=== PATIENT | female | born 1995 | race Caucasian/White ===

== ENCOUNTER 2019-08-22 16:08 | Emergency (ER) | payer SELFPAY ==
[2019-08-22 16:16] VITALS: BP 112/56; PULSE 79; RESP 16; TEMP 37.2; O2SAT 98; BMI 26.9
--- NOTE | 2019-08-22 16:28 | W.ED.EYEPROB ---
HPI - Eye Problem General: Chief complaint: Eye Problems Stated complaint: poss pink eye, aches fever Time Seen by Provider: 08/22/19 16:21 Source: patient Mode of arrival: ambulatory Limitations: no limitations History of Present Illness: HPI Narrative: Patient comes in today with complaints of eye drainage and discomfort. Patient appears mildly unwell. Patient also reports some cough and nasal drainage and a little loose stools. Patient appears in no pain. chief complaint: eye redness Review of Systems General: Reports: 10 or more systems reviewed and unremarkable except in HPI and below Eyes: Reports: eye discharge ENMT: Reports: nasal discharge Resp: Reports: non-productive cough PFSH ED PFSH: Social History Smoking and tobacco status: current every day smoker Female Reproductive History: Date of last menstrual period: 08/15/19 Physical Exam Const: COMMON NORMALS: no apparent distress and oriented x3 GENERAL APPEARANCE: cooperative HENMT: COMMON NORMALS: normocephalic, external ears normal, EAC's normal, TM's normal bilaterally and external nose normal HEAD & SCALP: normal to inspection and normocephalic FACE & SINUS: normal facial exam NOSE: external nose normal GENERAL EAR: hearing not grossly impaired EXTERNAL EAR: Yes external ears normal EXTERNAL AUDITORY CANAL: EAC's normal TYMPANIC MEMBRANE: TM's normal bilaterally MOUTH: oral and palatal mucosa normal THROAT: posterior oropharynx abnormal erythema Eye: COMMON NORMALS: PERRL and EOMs intact bilaterally EYELID: eyelid abnormal right upper eyelid erythema and swelling and right lower eyelid erythema and swelling CONJUNCTIVA: Yes conjunctiva abnormal positive right conjunctival injection PUPIL: Yes PERRL Neck/C-Spine: COMMON NORMALS: full ROM and no lymphadenopathy Lymph: LYMPHATIC: no lymphedema noted Chest: COMMONS NORMALS: inspection of chest normal and palpation of chest normal Resp: COMMON NORMALS: normal respiratory effort and clear to auscultation bilaterally AUSCULTATION: clear to auscultation bilaterally Cardio: COMMON NORMALS: regular rate and regular rhythm RATE: regular rate RHYTHM: regular rhythm GI: COMMON NORMALS: normal to inspection, nondistended, normoactive bowel sounds and non-tender : COMMON NORMALS: Yes no CVA tenderness BLADDER/KIDNEY EXAM: Yes no CVA tenderness Back/Pelvis: COMMON NORMALS: no CVA tenderness and thoracic and lumbar spine normal to inspection Extremity: COMMON NORMALS: normal to inspection GENERAL: No edema Neuro: COMMON NORMALS: oriented x3, moves all extremities and no focal motor deficits Psych: COMMON NORMALS: mental status grossly normal and cooperative Skin: COMMON NORMALS: no rashes or lesions noted GENERAL SKIN EXAM: no rashes or lesions noted Course Vital Signs: Vital signs: Vital Signs Temperature 98.9 F 08/22/19 16:16 Pulse Rate 79 08/22/19 16:16 Respiratory Rate 16 08/22/19 16:16 Blood Pressure 112/56 08/22/19 16:16 Pulse Oximetry 98 08/22/19 16:16 MDM - Eye Problem MDM Narrative: Medical decision making narrative: patient comes in with redness to right eye. Exam notes mild swelling and redness, mild nasal discharge, remainder of exam normal. DDX conjunctivitis, URI, viral syndrome. Influenza test negative, will treat with antibiotic eye drop. Patient reports understanding of care plan. Lab Data: Labs: Lab Results 08/22/19 Range/Units 16:59 Influenza Type A A g Negative (Negative) POC Influenza B Ag Negative (Negative) Discharge Plan Discharge Patient Disposition: Home, Self-Care Clinical Impression: Bacterial conjunctivitis, Viral syndrome Condition: Stable Prescriptions: New TobraDex 0.3-0.1 % drops,suspension 1 drp ophthalmic (eye) QID 5 Days Qty: 2.5 RF: 0 No Action prazosin 5 mg capsule 5 mg PO .HS RF: 0 quetiapine [Seroquel] 25 mg tablet 25 mg PO .HS RF: 0 fluoxetine [Prozac] 40 mg capsule 40 mg PO QDAY RF: 0 Referrals: Jeronimo Mehta MD [Family Provider] - Salvatore Boston FNP [Primary Care Provider] - Patient Instructions: Conjunctivitis (ED) Activity Restrictions/Additional Instructions: Encourage plenty of fluids Acetaminophen and ibuprofen for pain or fever Follow-up for persistent symptom Return to ER for high fever increase redness and swelling to eye Coding Level of Care Code ED Private Branch Exchange Service Adviser for Chg Fwd Exam Comprehensive
[2019-08-22 17:22] LABS: Influenza A by IFA Negative (Negative); Influenza B by IFA Negative (Negative)
[2019-08-22 18:19] VITALS: BP 111/63; PULSE 64; RESP 18; TEMP 36.7; O2SAT 99
== END 2019-08-22 18:20 | disposition home or self-care (01) ==
PROVIDERS: Emergency Provider Nurse Practitioner Family; Family Provider Pediatrics; PCP Nurse Practitioner Family
DX: H10.89 Other conjunctivitis (principal); B34.9 Viral infection, unspecified; F17.200 Nicotine dependence, unspecified, uncomplicated
CPT/HCPCS: 12345; 87804; 99282

== ENCOUNTER 2019-10-05 13:41 | Emergency (ER) | payer SELFPAY ==
[2019-10-05 13:50] VITALS: BP 134/110; PULSE 96; RESP 18; TEMP 36.4; O2SAT 99; BMI 25.5
--- NOTE | 2019-10-05 13:52 | W.ED.FEMALGU ---
HPI - Female Genitourinary General: Chief complaint: Urogenital-Female Stated complaint: female problems Time Seen by Provider: 10/05/19 13:50 Source: patient Mode of arrival: ambulatory Limitations: no limitations History of Present Illness: Date of Last Menstrual Period: 08/15/19 Review of Systems General: Reports: 10 or more systems reviewed and unremarkable except in HPI and below PFSH ED PFSH: Social History Smoking and tobacco status: current every day smoker Female Reproductive History: Date of last menstrual period: 08/15/19 Physical Exam Const: COMMON NORMALS: no apparent distress and oriented x3 GENERAL APPEARANCE: cooperative HENMT: COMMON NORMALS: normocephalic, TM's normal bilaterally and external nose normal HEAD & SCALP: normal to inspection and normocephalic NOSE: external nose normal TYMPANIC MEMBRANE: TM's normal bilaterally MOUTH: oral and palatal mucosa normal THROAT: posterior oropharynx normal Eye: GENERAL EYE: normal appearance of both eyes Neck/C-Spine: COMMON NORMALS: full ROM Lymph: LYMPHATIC: no lymphadenopathy noted Chest: COMMONS NORMALS: inspection of chest normal Resp: COMMON NORMALS: normal respiratory effort EFFORT & INSPECTION: Yes able to speak in complete sentences Cardio: COMMON NORMALS: regular rate and regular rhythm RATE: regular rate RHYTHM: regular rhythm GI: COMMON NORMALS: non-tender : COMMON NORMALS: Yes no CVA tenderness BLADDER/KIDNEY EXAM: Yes no CVA tenderness OTHER: Patient has some ulcerated lesions to the left vulvar area that was noted on visualization. Contracts Administrator, Betsy RN, was present during examination. Back/Pelvis: COMMON NORMALS: no CVA tenderness and thoracic and lumbar spine normal to inspection Extremity: COMMON NORMALS: normal to inspection Neuro: COMMON NORMALS: oriented x3 and moves all extremities Psych: COMMON NORMALS: mental status grossly normal and cooperative Skin: COMMON NORMALS: no rashes or lesions noted GENERAL SKIN EXAM: no rashes or lesions noted Course Vital Signs: Vital signs: Vital Signs Temperature 97.6 F 10/05/19 13:50 Pulse Rate 96 10/05/19 13:50 Respiratory Rate 18 10/05/19 13:50 Blood Pressure 134/110 10/05/19 13:50 Pulse Oximetry 99 10/05/19 13:50 MDM - Female MDM Narrative: Medical decision making narrative: Patient comes in today for concerns of herpes lesions to the genital area. Patient reports that she had used unprotected sex and then had an outbreak of lesions. Patient is also had a couple lesions to the face and to the lower extremity. Patient does shave her perineal area routinely. Exam notes some ulcerative lesions to the left vulvar area. Lesions are linear pattern. Patient also has a crusting honey crusting lesion to the left face and the right ankle. Differential diagnosis includes genital herpes, folliculitis, impetigo. Suspect patient may have genital herpes but I think that she has impetigo or folliculitis along with it. We will treat with valacyclovir and Bactrim for the next 7 to 10 days. Patient reports understanding of care plan reviewed care instructions and need for follow-up. Discharge Plan Discharge Patient Disposition: Home, Self-Care Clinical Impression: Acute folliculitis Genital herpes Qualifiers: Herpes simplex infection site: vulvovaginitis Qualified Code(s): A60.04 - Herpesviral vulvovaginitis Condition: Stable Prescriptions: New Bactrim DS 800-160 mg tablet 1 tab PO BID 10 Days Qty: 20 RF: 0 valacyclovir 1 gram tablet 1,000 mg PO TID 7 Days Qty: 21 RF: 0 No Action fluoxetine [Prozac] 40 mg capsule 40 mg PO DAILY RF: 0 Tylenol 325 mg Tablet 325 mg PO QID PRN (Reason: DISCOMFORT) RF: 0 Discharge Orders: Discharge Order (Routine); Ordered 10/05/19 Ordered By: Narayan Qureshi Referrals: Jeronimo Mehta MD [Family Provider] - Discharge Diet: Usual diet Discharge Activity: Increase activity as tolerated Patient Instructions: Folliculitis (ED) Activity Restrictions/Additional Instructions: Medications as directed. Avoid picking at lesions. Good handwashing. Return to the ER for high fever or worsening symptoms. Follow-up with primary care in 1 week for recheck. Coding Level of Care Code ED Satellite Communications Operator for Giovanna Fwwill Exam Comprehensive
[2019-10-05 14:34] VITALS: BP 117/86; PULSE 85; RESP 18; O2SAT 100
== END 2019-10-05 17:58 | disposition home or self-care (01) ==
PROVIDERS: Emergency Provider Nurse Practitioner Family; Family Provider Pediatrics
DX: A60.04 Herpesviral vulvovaginitis (principal); L73.9 Follicular disorder, unspecified; F17.210 Nicotine dependence, cigarettes, uncomplicated
CPT/HCPCS: 12345; 99281; 99282

== ENCOUNTER 2019-10-19 22:01 | Emergency (ER) | payer SELFPAY ==
[2019-10-19 22:03] VITALS: BP 126/90; PULSE 87; RESP 18; TEMP 36.6; O2SAT 100; BMI 26.4
--- NOTE | 2019-10-19 23:00 | W.ED.FEMALGU ---
HPI - Female Genitourinary General: Chief complaint: General Medical Stated complaint: rash Time Seen by Provider: 10/19/19 22:48 Source: patient Mode of arrival: ambulatory Limitations: no limitations History of Present Illness: HPI Narrative: Patient is a 24-year-old female who presents to ED today wanting tested for STDs. Patient apparently was seen here approximately 2 weeks ago and diagnosed with genital herpes. She states that she has had another encounter with that same partner who recently informed her that he may have an STD however will not divulge which one. When asked patient tells me she is having vaginal itching and discharge. She denies pelvic pain or painful intercourse. Denies abdominal pain, nausea, vomiting. No fevers. MD elicited complaint: vaginal discharge and genital itching Onset (ago): day(s) Location of symptoms: vaginal Female Urogenital Radiation: Non-Radiating Vaginal discharge: white Vaginal bleeding: none Exacerbating factors: none Relieving factors: none Associated symptoms: Reports no associated symptoms and vaginal discharge; Deny abdominal pain, nausea or vaginal bleeding Treatment prior to arrival: none Sexual activity: Yes and New Sexual Partners Patient : No Date of Last Menstrual Period: 08/15/19 Review of Systems Const: Denies: fever or chills GI: Denies: abdominal pain, nausea, vomiting or diarrhea : Reports: genital lesion (these cleared after being placed on Valtrex), genital itching and vaginal discharge; Denies: flank pain, difficulty urinating, painful urination, urinary frequency, urinary urgency, urinary hesitancy, blood in urine, vaginal odor, vaginal bleeding or pelvic pain Skin/Breast: Reports: rash PFSH ED PFSH: Social History Smoking and tobacco status: current every day smoker Female Reproductive History: Date of last menstrual period: 08/15/19 Physical Exam Const: COMMON NORMALS: no apparent distress, average body habitus, oriented x3, no limitations, healthy appearing, alert and well nourished GI: COMMON NORMALS: normal to inspection, nondistended, normoactive bowel sounds, soft to palpation, non-tender, no hepatosplenomegaly and no masses PALPATION: Yes soft and Yes no hepatosplenomegaly : COMMON NORMALS: Yes no CVA tenderness, Yes external appearance normal and Yes bimanual exam normal BLADDER/KIDNEY EXAM: Yes no CVA tenderness EXTERNAL FEMALE EXAM: Yes normal appearance of the urethra SPECULUM EXAM - VAGINA: No vaginal bleeding and No tissue present in vagina SPECULUM EXAM - CERVIX: No cervical bleeding, Yes abnormal cervical discharge yellow and white and No cervical tenderness BIMANUAL EXAM - VAGINA & UTERUS: Yes normal bimanual exam and No cervical tenderness OB/EXTERNAL & SPECULUM: no tissue noted in vagina and vaginal bleeding Back/Pelvis: COMMON NORMALS: no CVA tenderness Neuro: COMMON NORMALS: oriented x3 SENSORIUM/ORIENTATION: Yes alert Skin: COMMON NORMALS: no rashes or lesions noted GENERAL SKIN EXAM: no rashes or lesions noted Course Vital Signs: Vital signs: Vital Signs Temperature 97.9 F 10/19/19 22:03 Pulse Rate 87 10/19/19 22:03 Respiratory Rate 18 10/19/19 22:03 Blood Pressure 126/90 10/19/19 22:03 Pulse Oximetry 100 10/19/19 22:03 MDM - Female Lab Data: Labs: Lab Results 10/19/19 10/19/19 Range/Units 23:30 23:30 Urine Color Yellow (Yellow) Urine Appearance Clear (CLEAR) Urine pH 8 H (5-7) Ur Specific Gravit y 1.015 (1.005-1.030) Urine Protein Neg (Negative) Urine Glucose (UA) Norm (Normal) Urine Ketones Negative (Negative) Urine Blood Trace H (Negative) Urine Nitrate Negative (Negative) Urine Bilirubin Neg (NEGATIVE) Prot Sulfosalicyli c Acd Negative (Negative) Urine Urobilinogen Norm (Negative) mg/dL Ur Leukocyte Paula ase Negative (Negative) Urine RBC Rare (0-2) /hpf Urine WBC Rare (0-5) /hpf Ur Squamous Epith Cells 0-4 H (0-5) Urine Bacteria Trace (NONE) Urine HCG, Qual Negative (Negative) Discharge Plan Discharge Patient Disposition: Home, Self-Care Clinical Impression: Possible exposure to STD, Vaginitis due to Trichomonas Condition: Stable Prescriptions: New metronidazole 500 mg tablet 500 mg PO BID 7 Days Qty: 14 RF: 0 Discharge Orders: Discharge Order (Routine); Ordered 10/20/19 Ordered By: Sandie Pereira Referrals: Jeronimo Mehta MD [Family Provider] - Patient Instructions: Sexually Transmitted Diseases (ED), Safe Sex (ED), Trichomoniasis (ED) Activity Restrictions/Additional Instructions: We have tested you today for gonorrhea and chlamydia. These are send out tests and we will not get results for 2 to 3 days. If they are positive then the labs should contact you. If you have not heard from them please contact medical records to obtain your results. Abstain from all sexual activity until you get these results. You have tested positive for trichomonas today. I am placing you on antibiotics to treat this infection. Again no sexual activity until you complete the full course of antibiotics. You need to notify any sexual partners you have had so they may also get tested and treated. Coding Level of Care Code ED Irrigation System Operator for Giovanna Fwwill Exam Expanded Problem Focused
[2019-10-20 00:12] LABS: Add Urine Microscopic? YES; Bacteria Urine TRACE; Bilirubin Urine Neg (NEGATIVE); Blood Urine Trace (Negative); Glucose Urine UA Norm (Normal); Ketones Urine Negative (Negative); Leukocyte Esterase Urine Negative (Negative); Nitrate Urine Negative (Negative); Protein Urine Neg (Negative); RBC Urine RARE /hpf (0-2); Specific Gravity, Urine 1.015 (1.005-1.030); Squamous Epithelial Cell Urine 0-4 (0-5); Sulfosalicylic Acid Urine Negative (Negative); Urine Appearance Clear (CLEAR); Urine Color Yellow (Yellow); Urobilinogen Urine Norm (Negative); WBC Urine RARE /hpf (0-5); pH Urine 8 (5-7)
[2019-10-20] MEDS: cefTRIAXone 1,000 mg SDV 250 MG IM (00:16)
[2019-10-20] MEDS: azithromycin 250 mg Tablet 1000 MG PO (00:16)
[2019-10-20 00:36] VITALS: BP 124/72; PULSE 76; RESP 16; O2SAT 99
== END 2019-10-20 00:41 | disposition home or self-care (01) ==
PROVIDERS: Emergency Provider Physician Assistant; Family Provider Pediatrics
DX: A59.01 Trichomonal vulvovaginitis (principal); F17.210 Nicotine dependence, cigarettes, uncomplicated
CPT/HCPCS: 12345; 81001; 81025; 87210; 87491; 87591; 96372; 99281; 99283; E0352; J0696; Q0144

== ENCOUNTER 2020-01-01 23:22 | Emergency (ER) | payer SELFPAY ==
--- NOTE | 2020-01-01 23:25 | XRR_ITS ---
PROCEDURE INFORMATION: Exam: XR Chest, 1 View Exam date and time: 01/01/2020 11:27 PM Age: 24 years old Clinical indication: Cough; Additional info: AMS TECHNIQUE: Imaging protocol: XR of the chest Views: 1 view. COMPARISON: CR Chest 2 views* [id number] 04/01/2016 12:05 PM FINDINGS: Lungs: Lungs are clear. Pleural space: There is no pleural effusion or pneumothorax. Heart/Mediastinum: Cardiomediastinal contours are unremarkable. Bones/joints: Bones are unremarkable. XR/XR chest 1V portable [id number] IMPRESSION: No pathologic findings.
[2020-01-01 23:29] VITALS: BP 150/119; PULSE 84; RESP 17; TEMP 36.6; O2SAT 97; BMI 23.4
--- NOTE | 2020-01-01 23:33 | ED_ITS ---
HPI - Dizziness General: Chief Complaint: General Medical Stated Complaint: POSSIBLE DRUG USE Time Seen by Provider: 01/01/20 23:31 Source: patient Mode of arrival: ambulatory Limitations: no limitations History of Present Illness: HPI Narrative: Patient was brought in by EMS due to concerns of substance abuse. Patient states that she used methamphetamines tonight and became disoriented. Patient does not know if she has an infection or other illness. Patient appears sedated. Patient states that there was someone else's blood mixed with the methamphetamines that she took. Patient denies using anything but methamphetamine. Patient appears well. Patient responds to questions. Associated neuro symptoms: Reports confusion Review of Systems General: Reports: 10 or more systems reviewed and unremarkable except in HPI and below Neuro: Reports: confusion PFSH ED PFSH: Medical History (Updated 01/02/20 @ 01:03 by ROMAIN Baptiste) Anxiety and depression Herpes Intermittent explosive disorder Menorrhagia with irregular cycle PTSD (post-traumatic stress disorder) Surgical History (Updated 10/21/19 @ 13:42 by Brittney Munoz APN, FABRICIO) H/O section 1--04/18/2012 2--11/09/2015 H/O tubal ligation (~11/09/15) H/O wisdom tooth extraction (~2005) Family History (Updated 10/21/19 @ 13:44 by Brittney Munoz APN, FABRICIO) Grandmother Diabetes Paternal grandmother Grandfather Diabetes Paternal grandfather Stroke Paternal grandfather Family/Other Cancer female cancer-- Paternal aunt and cousin Denies family history of Colon cancer Ovarian cancer Breast cancer Uterine cancer Social History Smoking and tobacco status: current every day smoker cigarettes Packs smoked per day: 1 Alcohol intake: current Additional social history: Drug use: -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 She said she stopped using drugs at that point and has not used any drugs since then. -Denies past use of any other drugs. Female Reproductive History: Date of last menstrual period: 08/15/19 Physical Exam Const: COMMON NORMALS: no acute distress and patient oriented x3 GENERAL APPEARANCE: cooperative HENMT: COMMON NORMALS: normocephalic, TM's normal bilaterally and Normal external nose present HEAD & SCALP: normal to inspection and normocephalic NOSE: Normal external nose present TYMPANIC MEMBRANE: TM's normal bilaterally MOUTH: Normal oral and palatal mucosa present THROAT: posterior oropharynx normal Eye: GENERAL EYE: appearance normal, both eyes and all related structures Neck/C-Spine: COMMON NORMALS: full ROM Lymph: LYMPHATIC: no lymphadenopathy noted Chest: COMMONS NORMALS: normal inspection of the chest Resp: COMMON NORMALS: normal respiratory effort EFFORT & INSPECTION: Yes able to speak in complete sentences Cardio: COMMON NORMALS: regular rate and regular rhythm RATE: regular rate RHYTHM: regular rhythm GI: COMMON NORMALS: non-tender : COMMON NORMALS: Yes no CVA tenderness BLADDER/KIDNEY EXAM: Yes no CVA tenderness Back/Pelvis: COMMON NORMALS: no CVA tenderness and thoracic and lumbar spine normal to inspection Extremity: COMMON NORMALS: normal to inspection Neuro: COMMON NORMALS: patient oriented x3 and moves all extremities Psych: COMMON NORMALS: mental status grossly normal and cooperative Skin: COMMON NORMALS: no rashes or lesions noted GENERAL SKIN EXAM: no rashes or lesions noted Course ED course: 1:00. Patient appears well. Patient is alert and oriented. Patient is up ambulatory without difficulty. Patient denies any pain or discomfort. Patient refused any IV fluids. Vital signs are normal and laboratory values were normal. Vital Signs: Vital signs: Vital Signs Temperature 98 F 01/01/20 23:29 Pulse Rate 84 01/01/20 23:29 Respiratory Rate 17 01/01/20 23:29 Blood Pressure 150/119 01/01/20 23:29 Pulse Oximetry 97 01/01/20 23:29 MDM - Dizziness MDM Narrative: Medical decision making narrative: Patient was brought in by EMS for concerns of substance abuse. Patient was alert and oriented when she arrived to the ER but seems sedated. Patient was here for approximately 2 hours and seemed to become more alert within 30 minutes of being here. Laboratory values come back with a CBC and CMP being normal. Patient was alert and oriented and able to walk without difficulty prior to discharge. Patient was released to home with a significant other. Lab Data: Labs: Lab Results 01/02/20 01/02/20 01/02/20 Range/Units 00:10 00:10 00:10 WBC 9.4 (4.0-10.0) 10^3/ uL RBC 4.21 (4.1-5.3) 10^6/u L Hgb 12.2 (11.5-15.3) g/dL Hct 38.9 (37.0-47.0) % MCV 92.4 (81-99) fL MCH 29.0 (28.0-34.0) pg MCHC 31.4 (30.0-36.0) g/dL RDW 14.1 (12.1-15.1) % Plt Count 329 (130-400) 10^3/c mm MPV 9.3 (7.4-10.4) fL Neut % (Auto) 67.5 % Lymph % (Auto) 20.2 % Carter % (Auto) 8.4 % Eos % (Auto) 2.6 % Baso % (Auto) 1.0 % Neut # (Auto) 6.32 (1.8-7.7) 10^3/u L Lymph # (Auto) 1.9 (0.8-4.8) 10^3/u L Carter # (Auto) 0.8 (0.2-0.9) 10^3/u L Eos # (Auto) 0.2 (0.0-0.8) 10^3/u L Baso # (Auto) 0.1 (0.0-0.1) 10^3/u L Nucleated RBC % (a uto) 0 % Nucleated RBCs # 0.0 /100WBC Sodium 141 (136-145) mmol/L Potassium 3.6 (3.5-5.1) mmol/L Chloride 103 (98-107) mmol/L Carbon Dioxide 27 (22-29) mmol/L Anion Gap 14.6 (5-19) BUN 6 (6-20) mg/dL Creatinine 0.6 (0.5-0.9) mg/dL GFR Calculation 121.8 (90-130) mL/min Glucose 112 (65-115) mg/dL Calculated Osmolal ity 289 (285-295) mOsm/k g Calcium 8.9 (8.5-10.5) mg/dL Total Bilirubin 0.2 (0.15-1.2) mg/dL AST 12 (0-32) U/L ALT 13 (0-33) U/L Alkaline Phosphata se 51 (35-105) IU/L Total Protein 7.9 (6.6-8.7) g/dL Albumin 4.5 (3.5-5.2) g/dL Globulin 3.4 (1.3-4.6) g/dL HCG, Qual Negative (Negative) Salicylates < 0.3 L (3-10) mg/dL Acetaminophen < 5.0 L (10-30) ug/mL Ethyl Alcohol < 10 (0-10) mg/dL Discharge Plan Discharge Patient Disposition: Home, Self-Care Clinical Impression: Substance abuse, Methamphetamine use disorder, severe Condition: Stable Prescriptions: No Action fluoxetine 20 mg tablet 20 mg PO DAILY Qty: 30 RF: 2 prazosin 5 mg capsule 5 mg PO .HS Qty: 30 RF: 2 Discharge Orders: Discharge Order (Routine); Ordered 01/02/20 Ordered By: Narayan Qureshi Discharge Diet: Usual diet Discharge Activity: Increase activity as tolerated Patient Instructions: Methamphetamine Abuse (ED) Activity Restrictions/Additional Instructions: Home and rest. Drink plenty of fluids. Avoid the use of IV drugs. Follow-up with primary care. Return to the emergency department for new concerns. Coding Level of Care Code ED Senior Formulation Scientist for Giovanna Fwd Exam Comprehensive
[2020-01-02 00:18] LABS: Basophils # 0.1 10^3/uL (0.0-0.1); Eosinophils # 0.2 10^3/uL (0.0-0.8); Eosinophils % 2.6 %; Hematocrit 38.9 % (37.0-47.0); Hemoglobin 12.2 g/dL (11.5-15.3); Lymphocytes # 1.9 10^3/uL (0.8-4.8); Lymphocytes % 20.2 %; Mean Corpuscular HGB Conc 31.4 g/dL (30.0-36.0); Mean Corpuscular Volume 92.4 fL (81-99); Mean Platelet Volume 9.3 fL (7.4-10.4); Monocytes # 0.8 10^3/uL (0.2-0.9); Monocytes % 8.4 %; Neutrophils # 6.32 10^3/uL (1.8-7.7); Neutrophils % 67.5 %; Nucleated Red Blood Cells % 0 %; Platelet Count 329 10^3/cmm (130-400); Red Blood Count 4.21 10^6/uL (4.1-5.3); Red Cell Distribution Width 14.1 % (12.1-15.1); White Blood Count 9.4 10^3/uL (4.0-10.0)
[2020-01-02 00:25] LABS: HCG, Serum Qual Negative (Negative)
[2020-01-02 00:34] LABS: Alanine Aminotransferase 13 U/L (0-33); Albumin Level 4.5 g/dL (3.5-5.2); Alkaline Phosphatase 51 IU/L (35-105); Anion Gap 14.6 (5-19); Aspartate Amino Transferase 12 U/L (0-32); Blood Urea Nitrogen 6 mg/dL (6-20); Calcium 8.9 mg/dL (8.5-10.5); Carbon Dioxide 27 mmol/L (22-29); Chloride 103 mmol/L (98-107); Globulin 3.4 g/dL (1.3-4.6); Glomerular Filtration Rate 121.8 mL/min (90-130); Glucose 112 mg/dL (65-115); Osmolality Calculated 289 mOsm/kg (285-295); Potassium 3.6 mmol/L (3.5-5.1); Sodium 141 mmol/L (136-145); Total Bilirubin 0.2 mg/dL (0.15-1.2); Total Protein 7.9 g/dL (6.6-8.7)
[2020-01-02 00:49] LABS: Acetaminophen < 5.0 ug/mL (10-30); Alcohol Level < 10 mg/dL (0-10); Salicylate < 0.3 mg/dL (3-10)
--- NOTE | 2020-01-02 02:14 | PC.NURSE ---
pt attempted to remove IV prior to d/c. IV removed IV by staff
--- NOTE | 2020-01-02 02:22 | PC.NURSE ---
i have reviewed the assessment and agree
[2020-01-02 02:39] LABS: Amphetamines Screen Urine Positive (Negative); Barbiturates Screen Urine Negative (Negative); Benzodiazepines Screen Urine Negative (Negative); Cocaine Screen Urine Negative (Negative); Opiate Screen Urine Negative (Negative); PCP Screen Urine Negative (Negative); THC Screen Urine Negative (Negative)
[2020-01-02 02:56] LABS: Add Urine Microscopic? YES; Bilirubin Urine Neg (NEGATIVE); Blood Urine Neg (Negative); Glucose Urine UA Norm (Normal); Ketones Urine Negative (Negative); Leukocyte Esterase Urine Trace (Negative); Nitrate Urine Negative (Negative); Protein Urine Neg (Negative); Specific Gravity, Urine 1.005 (1.005-1.030); Urine Appearance Clear (CLEAR); Urine Color Straw (Yellow); Urobilinogen Urine Norm (Negative); pH Urine 6.5 (5-7)
[2020-01-02 03:00] LABS: Bacteria Urine TRACE; RBC Urine RARE /hpf (0-2); Transitional Epi Cells Urine 0-4 /hpf; WBC Urine 0-4 /hpf (0-5)
[2020-01-02 03:01] LABS: Add Urine Culture? No
== END 2020-01-02 02:00 | disposition home or self-care (01) ==
PROVIDERS: Emergency Medicine; Emergency Provider Nurse Practitioner Family
DX: F15.10 Other stimulant abuse, uncomplicated (principal); F17.210 Nicotine dependence, cigarettes, uncomplicated
CPT/HCPCS: 12345; 71045; 80053; 80306; 80307; 81001; 81003; 84703; 85025; 99283

== ENCOUNTER 2021-06-04 07:46 | Outpatient (CLI) | payer MEDICAID, SELFPAY ==
--- NOTE | 2021-06-04 08:00 | MR_ITS ---
WS: [id number] MRI NECK WITH CONTRAST TECHNIQUE: Noncontrast axial T1, axial T2 FSE fat sat, coronal T2 fat sat, coronal T1, coronal T1 fat sat, sagittal T2 fat sat, plus contrast enhanced coronal, sagittal, and axial T1 fat sat images obta ined. CLINICAL INFORMATION: POSSIBLE PSUEDO TUMOR COMPARISON: CT 2019 FINDINGS: No evidence of restricted diffusion to suggest acute ischemia. Ventricular system and basal cisterns are patent. Normal avalos-white differentiation. No suspicious intracranial signal abnormalities. Saira l posterior fossa. Normal optic chiasm and pituitary infundibulum. Temporal lobes and hippocampal formations are normal in appearance. No hemosiderin on susceptibly weighted images. Optic nerves appear normal. No abnormal gadolinium enhancement. Proximal 7th and 8th cranial nerves appear normal. MR/MR orbit face neck wo/w* [id number] IMPRESSION: 1. No evidence of restricted diffusion to suggest acute ischemia. 2. No suspicious intracranial signal abnormalities. 3. Normal optic chiasm and pituitary infundibulum. Optic nerves appear normal. No optic nerve edema. 4. No abnormal gadolinium enhancement. 5. No hemosiderin on the susceptibility weighted imaging. 6. No other suspicious findings.
[2021-06-04] MEDS: gadobenate dimeglumine 20 mL vial IV (08:48)
== END 2021-06-04 07:47 | disposition home or self-care (01) ==
PROVIDERS: Visit Provider Ophthalmology
DX: H47.10 Unspecified papilledema (principal)
CPT/HCPCS: 70543; A9577

== ENCOUNTER 2021-06-22 15:48 | Emergency (ER) | payer MEDICAID, SELFPAY ==
[2021-06-22 15:51] VITALS: BP 128/91; PULSE 78; RESP 16; TEMP 36.7; O2SAT 98; BMI 27.3
--- NOTE | 2021-06-22 16:11 | XRR_ITS ---
PROCEDURE INFORMATION: Exam: XR Chest Exam date and time: 06/22/2021 4:11 PM Age: 26 years old Clinical indication: Pain; Angina pectoris; Additional info: Chest pain, tingling in fingers and face TECHNIQUE: Imaging protocol: XR of the chest. Views: 1 view. COMPARISON: CR XR chest 1V portable [id number] 01/02/2020 12:03 AM FINDINGS: Lungs: Unremarkable. No consolidation. Pleural spaces: Unremarkable. No pleural effusion. No pneumothorax. Heart/Mediastinum: Unremarkable. No cardiomegaly. Bones/joints: Unremarkable. XR/XR chest 1V portable [id number] IMPRESSION: No acute findings.
--- NOTE | 2021-06-22 16:11 | ECG_ITS ---
[facility] Test Date: 2021-06-22 Pat Name: Jovana Horn Department: Room: Gender: Female Cotton Weigher Operator: : 1995 Requested By: Martin Antonio Order Number: [id number] Quintana MD: Ginny Marquez M.D. Measurements Intervals [place] Rate: 84 P: 48 AK: 162 QRS: 86 QRSD: 85 T: 37 QT: 342 QTc: 406 Interpretive Statements SINUS RHYTHM Compared to ECG 01/26/2018 16:23:58 Sinus tachycardia no longer present Electronically Signed On 06-24-2021 8:36:34 INDUSTRIAL TRUCK OPERATOR by Ginny Marquez M.D. [id number]
--- NOTE | 2021-06-22 16:48 | W.ED.CHESTPA ---
HPI - Chest Pain General: Chief Complaint: Chest Pain Stated Complaint: Tightness in chest, tingling in fingers and hands Time Seen by Provider: 06/22/21 16:48 History of Present Illness: HPI narrative: 26-year-old female [facility] emergency room with complaints of chest tightness numbness and tingling in her fingers and hands. She correlates it to having started taking a medication she got from the [employer] for increased intraocular pressure, acetazolamide. MD complaint: chest pain Onset (ago): hour(s) Timing of current episode: episodic Onset: during rest Pain location: substernal Pain radiation: none Severity: mild Quality: tightness Relieving factors: nothing Exacerbating factors: inspiration Context: new medications Associated symptoms: Deny abdominal pain, diaphoresis, dyspnea, fever(s), leg edema, nausea, palpitations, sense of impending doom, syncope or vomiting Treatment prior to arrival: none Review of Systems Const: Denies: fever(s) or diaphoresis ENMT: Denies: throat pain, ear or mastoid pain, nasal discharge or nasal congestion Card: Denies: palpitations or syncope Resp: Denies: dyspnea GI: Denies: abdominal pain, nausea or vomiting : Denies: flank pain, difficulty voiding, dysuria, urinary frequency or urinary urgency Skin/Breast: Denies: rash or pruritus PFSH ED PFSH: Medical History Anxiety and depression Herpes Intermittent explosive disorder Menorrhagia with irregular cycle Psychiatric care PTSD (post-traumatic stress disorder) Surgical History H/O section 1--04/18/2012 2--11/09/2015 H/O tubal ligation (~11/09/15) H/O wisdom tooth extraction (~2005) Family History Grandmother Diabetes Paternal grandmother Grandfather Diabetes Paternal grandfather Stroke Paternal grandfather Family/Other Cancer female cancer-- Paternal aunt and cousin Denies family history of Colon cancer Ovarian cancer Breast cancer Uterine cancer Social History Smoking and tobacco status: current every day smoker cigarettes Packs smoked per day: 1 Alcohol intake: current Additional social history: Drug use: -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 She said she stopped using drugs at that point and has not used any drugs since then. -Denies past use of any other drugs. Female Reproductive History: Date of last menstrual period: 08/15/19 Physical Exam Const: COMMON NORMALS: no acute distress GENERAL APPEARANCE: cooperative and comfortable ORIENTATION/CONSCIOUSNESS: Yes awake, Yes oriented to person, Yes oriented to place and Yes oriented to time HENMT: COMMON NORMALS: normocephalic, atraumatic and hearing grossly normal bilaterally HEAD & SCALP: normocephalic and atraumatic Neck/C-Spine: COMMON NORMALS: no JVD Resp: COMMON NORMALS: normal respiratory effort, No retractions, No use of accessory muscles and clear to auscultation bilaterally AUSCULTATION: clear to auscultation bilaterally Cardio: COMMON NORMALS: no JVD, regular rate, regular rhythm and No murmurs present (Cardio) RATE: regular rate RHYTHM: regular rhythm GI: COMMON NORMALS: Soft to palpation and No hepatosplenomegaly present AUSCULTATION: Yes normoactive bowel sounds PALPATION: Yes Soft to palpation, No Tenderness to palpation present (GI), No Guarding due to palpation present (GI) and Yes No hepatosplenomegaly present Extremity: COMMON NORMALS: normal to inspection, capillary refill normal, no clubbing, cyanosis or edema, no calf tenderness and no pedal edema Neuro: SENSORIUM/ORIENTATION: Yes oriented to person, Yes oriented to place and Yes oriented to time Skin: COMMON NORMALS: no rashes or lesions noted GENERAL SKIN EXAM: no rashes or lesions noted Course Vital Signs: Vital signs: Vital Signs Temperature 98.1 F 06/22/21 15:51 Pulse Rate 83 06/22/21 17:47 Respiratory Rate 19 H 06/22/21 17:47 Blood Pressure 101/63 06/22/21 16:55 Pulse Oximetry 100 06/22/21 17:47 MDM - Chest Pain MDM Narrative: Medical decision making narrative: Stop acetazolamide. Follow-up with primary care or ophthalmology within the week. I think her symptoms are due to side effects of medication. Lab Data: Labs: Lab Results 06/22/21 06/22/2122 16:51 16:51 16:51 WBC 6.5 10^3/uL 10^3/ uL (4.0-10.0) RBC 4.74 10^6/uL 10^6 /uL (4.1-5.3) Hgb 14.1 g/dL g/dL (11.5-15.3) Hct 44.0 % % (37.0-47.0) MCV 92.8 fl fl (81-99) MCH 29.7 pg pg (28.0-34.0) MCHC 32.0 g/dL g/dL (30.0-36.0) RDW 13.2 % % (12.1-15.1) Plt Count 295 10^3/cmm 10^3 /cmm (130-400) MPV 10.0 fL fL (7.4-10.4) Neut % (Auto) 56.1 % % Lymph % (Auto) 29.6 % % [place] % (Auto) 11.1 % % Eos % (Auto) 2.0 % % Baso % (Auto) 0.9 % % Neut # (Auto) 3.62 10^3/uL 10^3 /uL (1.8-7.7) Lymph # (Auto) 1.9 10^3/uL 10^3/ uL (0.8-4.8) [place] # (Auto) 0.7 10^3/uL 10^3/ uL (0.2-0.9) Eos # (Auto) 0.1 10^3/uL 10^3/ uL (0.0-0.8) Baso # (Auto) 0.1 10^3/uL 10^3/ uL (0.0-0.1) Nucleated RBC % (a uto) 0 % % Nucleated RBCs # 0.0 /100WBC /100W BC Sodium 138 mmol/L mmol/L (136-145) Potassium 4.2 mmol/L mmol/L (3.5-5.1) Chloride 107 mmol/L mmol/L (98-107) Carbon Dioxide 17 mmol/L L mmol/ L (22-29) Anion Gap 18.2 (5-19) BUN 9 mg/dL mg/dL (6-20) Creatinine 0.6 mg/dL mg/dL (0.5-0.9) GFR Calculation 119.9 mL/min mL/m in (90-130) Glucose 73 mg/dL mg/dL (65-115) Calculated Osmolal ity 283 mOsm/kg L mOs m/kg (285-295) Calcium 9.6 mg/dL mg/dL (8.5-10.5) Total Bilirubin 0.2 mg/dL mg/dL (0.15-1.2) AST 12 U/L U/L (0-32) ALT 7 U/L U/L (0-33) Alkaline Phosphata se 58 IU/L IU/L (35-105) Troponin T Gen 5 n g/L 6 ng/L ng/L (0-10) Total Protein 8.0 g/dL g/dL (6.6-8.7) Albumin 4.9 g/dL g/dL (3.5-5.2) Globulin 3.1 g/dL g/dL (1.3-4.6) Discharge Plan Discharge Patient Disposition: Home Clinical Impression: Medication adverse effect Condition: Stable Prescriptions: No Action acetazolamide 500 mg capsule, extended release 500 mg PO BID RF: 0 Tylenol Ex Str Rapid Release 500 mg Tablet 500 mg PO Q6H RF: 0 ibuprofen 200 mg Tablet 600 mg PO Q6H RF: 0 Discharge Orders: Discharge ED (Routine); Ordered 06/22/21 Ordered By: Barry Zavala Discharge Diet: Usual diet Discharge Activity: Resume usual activity Patient Instructions: Opioid Safety Activity Restrictions/Additional Instructions: Stop the acetazolamide Coding Level of Care Code ED Healthcare Architect for Giovanna Fwd Exam Comprehensive
[2021-06-22 16:55] VITALS: BP 101/63; PULSE 76; RESP 18; O2SAT 99
[2021-06-22 17:47] VITALS: PULSE 83; RESP 19; O2SAT 100
[2021-06-22 17:54] LABS: Basophils # 0.1 10^3/uL (0.0-0.1); Basophils % 0.9 %; Eosinophils # 0.1 10^3/uL (0.0-0.8); Hemoglobin 14.1 g/dL (11.5-15.3); Lymphocytes # 1.9 10^3/uL (0.8-4.8); Lymphocytes % 29.6 %; Mean Corpuscular Hemoglobin 29.7 pg (28.0-34.0); Mean Corpuscular Volume 92.8 fl (81-99); Monocytes # 0.7 10^3/uL (0.2-0.9); Monocytes % 11.1 %; Neutrophils # 3.62 10^3/uL (1.8-7.7); Neutrophils % 56.1 %; Nucleated Red Blood Cells % 0 %; Platelet Count 295 10^3/cmm (130-400); Red Blood Count 4.74 10^6/uL (4.1-5.3); Red Cell Distribution Width 13.2 % (12.1-15.1); White Blood Count 6.5 10^3/uL (4.0-10.0)
[2021-06-22 18:06] LABS: Troponin T (5th) Once 6 ng/L (0-10)
[2021-06-22 18:07] LABS: Alanine Aminotransferase 7 U/L (0-33); Albumin Level 4.9 g/dL (3.5-5.2); Alkaline Phosphatase 58 IU/L (35-105); Anion Gap 18.2 (5-19); Aspartate Amino Transferase 12 U/L (0-32); Blood Urea Nitrogen 9 mg/dL (6-20); Calcium 9.6 mg/dL (8.5-10.5); Carbon Dioxide 17 mmol/L (22-29); Chloride 107 mmol/L (98-107); Globulin 3.1 g/dL (1.3-4.6); Glomerular Filtration Rate 119.9 mL/min (90-130); Glucose 73 mg/dL (65-115); Osmolality Calculated 283 mOsm/kg (285-295); Potassium 4.2 mmol/L (3.5-5.1); Sodium 138 mmol/L (136-145); Total Bilirubin 0.2 mg/dL (0.15-1.2)
== END 2021-06-22 18:26 | disposition home or self-care (01) ==
PROVIDERS: Emergency Provider Family Medicine
DX: T88.7XXA Unspecified adverse effect of drug or medicament, initial encounter (principal); T50.905A Adverse effect of unspecified drugs, medicaments and biological substances, initial encounter; F17.210 Nicotine dependence, cigarettes, uncomplicated
CPT/HCPCS: 71045; 80053; 84484; 85025; 93005; 99283

== ENCOUNTER → 2021-08-23 13:45 | Outpatient (BNVA) | payer MEDICAID, SELFPAY | PROVIDERS: Visit Provider Social Worker | DX: F43.12 Post-traumatic stress disorder, chronic (principal); F33.1 Major depressive disorder, recurrent, moderate | CPT/HCPCS: 90834 ==

== ENCOUNTER → 2021-09-06 07:53 | Outpatient (BNVA) | payer OTHER, SELFPAY | PROVIDERS: Visit Provider Social Worker | DX: F33.1 Major depressive disorder, recurrent, moderate (principal); F43.12 Post-traumatic stress disorder, chronic | CPT/HCPCS: 90834 ==

== ENCOUNTER → 2021-09-27 12:42 | Outpatient (BNVA) | payer OTHER, SELFPAY | PROVIDERS: Visit Provider Social Worker | DX: F43.12 Post-traumatic stress disorder, chronic (principal); F33.1 Major depressive disorder, recurrent, moderate | CPT/HCPCS: 90834 ==

== ENCOUNTER → 2021-10-18 13:43 | Outpatient (BNVA) | payer OTHER, SELFPAY | PROVIDERS: Visit Provider Social Worker | DX: F43.12 Post-traumatic stress disorder, chronic (principal); F33.1 Major depressive disorder, recurrent, moderate | CPT/HCPCS: 90834 ==

== ENCOUNTER → 2021-10-25 12:45 | Outpatient (BNVA) | payer OTHER, SELFPAY | PROVIDERS: Visit Provider Nurse Practitioner Psychiatric/Mental Health | DX: F43.12 Post-traumatic stress disorder, chronic (principal); F33.1 Major depressive disorder, recurrent, moderate; F15.21 Other stimulant dependence, in remission; F41.8 Other specified anxiety disorders | CPT/HCPCS: 90792 ==

== ENCOUNTER → 2021-11-01 13:43 | Outpatient (BNVA) | payer OTHER, SELFPAY | PROVIDERS: Visit Provider Social Worker | DX: F43.12 Post-traumatic stress disorder, chronic (principal); F33.1 Major depressive disorder, recurrent, moderate | CPT/HCPCS: 90834 ==

== ENCOUNTER → 2021-11-15 12:54 | Outpatient (BNVA) | payer OTHER, SELFPAY | PROVIDERS: Visit Provider Social Worker | DX: F43.12 Post-traumatic stress disorder, chronic (principal); F33.1 Major depressive disorder, recurrent, moderate | CPT/HCPCS: 90834 ==

== ENCOUNTER → 2022-01-10 08:57 | Outpatient (BNVA) | payer MEDICAID, SELFPAY | PROVIDERS: Visit Provider Obstetrics & Gynecology | DX: Z01.419 Encounter for gynecological examination (general) (routine) without abnormal findings (principal); Z12.4 Encounter for screening for malignant neoplasm of cervix | CPT/HCPCS: 86803; 87806; 88175 ==

== ENCOUNTER → 2023-03-12 13:00 | Outpatient (BNVA) | payer MEDICAID, SELFPAY | PROVIDERS: Visit Provider Nurse Practitioner Women's Health | DX: Z12.4 Encounter for screening for malignant neoplasm of cervix (principal) | CPT/HCPCS: 88175 ==

== ENCOUNTER → 2024-03-16 10:55 | Outpatient (BNVA) | payer MEDICAID, SELFPAY | PROVIDERS: Visit Provider Nurse Practitioner Women's Health | DX: Z20.2 Contact with and (suspected) exposure to infections with a predominantly sexual mode of transmission (principal) | CPT/HCPCS: 87491; 87591 ==